=== PATIENT | male | born 1985 | race Hispanic/Latino ===

== ENCOUNTER 2024-03-23 17:23 | Emergency (ER) | payer OTHER ==
[2024-03-23 18:46] LABS: #Basophils 0.04 10x3/uL (0.0-0.2); %Basophils 0.5 % (0.0-1.0); %Eosinophils 0.9 % (0.0-10.0); %Lymphocytes 27.3 % (21.0-51.0); %Neutrophils 62.2 % (42.0-75.0); Hematocrit 31.7 % (42.0-52.0); Hemoglobin 9.9 g/dL (14.0-18.0); Mean Corpuscular HGB CONC 31.2 g/dL (32.0-36.0); Mean Corpuscular Hemoglobin 27.3 pg (27.0-31.0); Mean Corpuscular Volume 87.3 fL (78.0-98.0); Platelet Count 345 10x3/uL (130-400); RBC Distribution Width 14.6 % (11.5-14.5); Red Blood Cell (RBC) Count 3.63 mill/uL (4.70-6.10)
[2024-03-23 19:16] LABS: ALT (SGPT) 16 U/L (8-55); AST (SGOT) 24 U/L (5-34); Albumin 2.7 g/dL (3.5-5.0); Alkaline Phosphatase 66 U/L (40-110); Anion Gap 9 mmol/L (10-20); BUN (Urea Nitrogen) 13 mg/dL (8.9-20.6); Bilirubin, Total 0.3 mg/dL (0.2-1.2); Calc. Creatinine Clearance 0 mL/min (70-130); Calcium 8.8 mg/dL (7.8-10.44); Carbon Dioxide 22 mmol/L (22-29); Chloride 106 mmol/L (98-107); Estimated GFR 121; Globulin 4.8 g/dL (2.4-3.5); Glucose 84 mg/dL (70-105); Lipase 17 U/L (8-78); Potassium 4.1 mmol/L (3.5-5.1); Protein, Total 7.5 g/dL (6.0-8.3); Sodium 133 mmol/L (136-145)
[2024-03-23 19:29] LABS: Bacteria/HPF None Seen HPF (None Seen); Bilirubin Negative (Negative); Blood, Urine Negative (Negative); CAUTI Indications for Culture Pelvic or flank pain; Clarity Clear (Clear); Glucose, Urine (Dipstick) Normal (Negative); Ketone, Urine Negative (Negative); Leukocyte Negative Leu/uL (Negative); Nitrite Negative (Negative); Protein, Urine (Dipstick) Negative (Neg-Trace); RBC/HPF 0-3 HPF (0-3); Specific Gravity, Urine 1.009 (1.002-1.036); Squamous Epithelial 0-3 HPF (0-3); Urobilinogen Normal mg/dL (Less than 2); WBC/HPF 0-3 HPF (0-3); pH, Urine 6.5 (5.0-9.0)
[2024-03-23 19:33] LABS: Urine Culture Reflex No No
== END 2024-03-23 21:35 | disposition home or self-care (01) ==
LOC: ERS 17:23
DX: B34.9 Viral infection, unspecified (principal); R10.13 Epigastric pain; F17.210 Nicotine dependence, cigarettes, uncomplicated
CPT/HCPCS: 36415; 76705; 80053; 81001; 83690; 85025; 87428

== ENCOUNTER 2025-01-23 20:15 | Emergency (ER) | payer OTHER, SELFPAY ==
[~2025-01-23 20:15] MED LIST: Iopamidol 370 76% 100 ML VIAL ONE
[2025-01-23 20:54] LABS: #Basophils Less than 0.03 10x3/uL (0.0-0.2); #Eosinophils 0.05 10x3/uL (0.0-0.7); #Monocytes 0.50 10x3/uL (0.11-0.59); #Neutrophils 2.48 10x3/uL (1.40-6.50); %Basophils 0.4 % (0.0-1.0); %Eosinophils 1.0 % (0.0-10.0); %Lymphocytes 35.4 % (21.0-51.0); %Monocytes 10.4 % (0.0-10.0); %Neutrophils 51.8 % (42.0-75.0); Hematocrit 30.5 % (42.0-52.0); Hemoglobin 9.6 g/dL (14.0-18.0); Mean Corpuscular Hemoglobin 24.4 pg (27.0-31.0); Mean Corpuscular Volume 77.6 fL (78.0-98.0); Platelet Count 369 10x3/uL (130-400); Red Blood Cell (RBC) Count 3.93 mill/uL (4.70-6.10); White Blood Cell (WBC) Count 4.80 10x3/uL (4.8-10.8)
[2025-01-23 21:11] LABS: ALT (SGPT) 13 U/L (Less than 45); AST (SGOT) 20 U/L (11-34); Albumin 2.9 g/dL (3.1-4.5); Alkaline Phosphatase 60 U/L (40-110); Anion Gap 17 mmol/L (10-20); BUN (Urea Nitrogen) 11 mg/dL (8.9-20.6); Bilirubin, Total 0.2 mg/dL (0.3-1.2); Calc. Creatinine Clearance 0 mL/min (70-130); Calcium 8.4 mg/dL (7.8-10.44); Carbon Dioxide 21 mmol/L (22-29); Chloride 101 mmol/L (98-107); Globulin 4.8 g/dL (2.4-3.5); Glucose 180 mg/dL (70-105); Potassium 4.3 mmol/L (3.5-5.1); Sodium 135 mmol/L (136-145)
[2025-01-23 21:14] LABS: Troponin I Less than 0.010 ng/mL (< 0.028)
[2025-01-23 21:22] LABS: INR-International Normal Ratio 1.2; Prothrombin Time 15.0 sec (12.0-14.7)
[2025-01-23 21:23] LABS: PTT 32.4 sec (22.9-36.1)
== END 2025-01-24 00:55 | disposition home or self-care (01) ==
LOC: ERS 20:15
DX: K52.9 Noninfective gastroenteritis and colitis, unspecified (principal); D50.9 Iron deficiency anemia, unspecified; J18.9 Pneumonia, unspecified organism; F17.210 Nicotine dependence, cigarettes, uncomplicated
CPT/HCPCS: 74177; 80053; 83605; 84484; 85025; 85610; 85730; 87040; 87077; 87149; 93005; 96374; J2270; Q9967

== ENCOUNTER 2025-01-30 19:30 | Emergency (ER) | payer SELFPAY ==
[~2025-01-30 19:30] MED LIST changes: -Iopamidol 370 76% 100 ML VIAL ONE; +Iopamidol-370 76% 500 ML MDV (1 ML CHARGE) ONE
[2025-01-30] MEDS ORDERED: Acetaminophen 500 MG TAB ONE (19:48)
[2025-01-30 20:03] LABS: Bacteria/HPF None Seen HPF (None Seen); CAUTI Indications for Culture Fever or rigors; Glucose, Urine (Dipstick) Normal (Negative); Leukocyte Negative Leu/uL (Negative); Protein, Urine (Dipstick) Negative (Neg-Trace); RBC/HPF None Seen HPF (0-3); Specific Gravity, Urine 1.007 (1.002-1.036); WBC/HPF 0-3 HPF (0-3)
[2025-01-30 20:10] LABS: Urine Culture Reflex No No
[2025-01-30 20:13] LABS: #Basophils Less than 0.03 10x3/uL (0.0-0.2); #Eosinophils 0.09 10x3/uL (0.0-0.7); #Monocytes 0.39 10x3/uL (0.11-0.59); #Neutrophils 2.52 10x3/uL (1.40-6.50); %Basophils 0.4 % (0.0-1.0); %Eosinophils 2.0 % (0.0-10.0); %Lymphocytes 32.6 % (21.0-51.0); %Monocytes 8.5 % (0.0-10.0); %Neutrophils 55.2 % (42.0-75.0); Hematocrit 30.8 % (42.0-52.0); Hemoglobin 9.6 g/dL (14.0-18.0); Mean Corpuscular Hemoglobin 24.4 pg (27.0-31.0); Mean Corpuscular Volume 78.4 fL (78.0-98.0); Platelet Count 375 10x3/uL (130-400); Red Blood Cell (RBC) Count 3.93 mill/uL (4.70-6.10); White Blood Cell (WBC) Count 4.57 10x3/uL (4.8-10.8)
[2025-01-30 20:28] LABS: ALT (SGPT) 13 U/L (Less than 45); AST (SGOT) 32 U/L (11-34); Albumin 3.0 g/dL (3.1-4.5); Alkaline Phosphatase 60 U/L (40-110); Anion Gap 14 mmol/L (10-20); BUN (Urea Nitrogen) 9 mg/dL (8.9-20.6); Bilirubin, Total 0.2 mg/dL (0.3-1.2); Calc. Creatinine Clearance 0 mL/min (70-130); Calcium 8.6 mg/dL (7.8-10.44); Carbon Dioxide 23 mmol/L (22-29); Chloride 98 mmol/L (98-107); Globulin 4.9 g/dL (2.4-3.5); Glucose 102 mg/dL (70-105); Lipase 13 U/L (8-78); Potassium 4.6 mmol/L (3.5-5.1); Sodium 130 mmol/L (136-145)
[2025-01-30] MEDS ORDERED: Ketorolac Tromethamine 30 MG (1 mL) VIAL ONE (21:35)
[2025-01-30] MEDS ORDERED: Ondansetron PF 4 MG/2 ML Vial ONE (21:36)
[2025-01-31 00:10] LABS: HIV (1/2) Antibody/Antigen Reflxed Confirmation (NonReactive); HIV 1/2 INDEX 740.31 S/CO (<1.00)
[2025-01-31 11:39] LABS: Syphilis Antibody Index 25.73 S/CO (<1.00 Non-Reactive)
[2025-01-31 12:48] LABS: Syphilis Titer 1:128 Titer (Nonreactive)
[2025-02-01 15:13] LABS: %CD3 (Mature T-Cells) 52.1 % (57.5-86.2); %CD4 (Helper/Inducer) 3.0 % (30.8-58.5); %CD8 (Cytotoxic/Suppressor) 49.9 % (12.0-35.5); %Neutrophils 54 % (Not Estab.); CD4/CD8 Ratio 0.06 (0.92-3.72); Hemoglobin 8.8 g/dL (13.0-17.7); Mean Corpuscular Hemoglobin 24.2 pg (26.6-33.0); Mean Corpuscular Volume 81 fL (79-97); Platelet Count 331 x10E3/uL (150-450)
== END 2025-01-31 02:34 | disposition home or self-care (01) ==
LOC: ERS 19:30
DX: U07.1 COVID-19 (principal); R10.9 Unspecified abdominal pain; F17.210 Nicotine dependence, cigarettes, uncomplicated
CPT/HCPCS: 36415; 71045; 74177; 80053; 81001; 83605; 83690; 84484; 85025; 86359; 86360; 86593; 86780; 87040; 87389; 87426; 87535; 87538; 93005; 96374; 96375; 96376; J1885; J2405; J3010; Q9967

== ENCOUNTER 2025-02-01 15:07 | Emergency (ER) | payer OTHER, SELFPAY ==
[2025-02-01 19:07] LABS: #Basophils 0.03 10x3/uL (0.0-0.2); #Eosinophils 0.03 10x3/uL (0.0-0.7); #Monocytes 0.37 10x3/uL (0.11-0.59); #Neutrophils 2.62 10x3/uL (1.40-6.50); %Basophils 0.7 % (0.0-1.0); %Eosinophils 0.7 % (0.0-10.0); %Lymphocytes 31.2 % (21.0-51.0); %Monocytes 8.0 % (0.0-10.0); %Neutrophils 56.8 % (42.0-75.0); Hematocrit 30.7 % (42.0-52.0); Hemoglobin 9.7 g/dL (14.0-18.0); Mean Corpuscular Hemoglobin 24.1 pg (27.0-31.0); Mean Corpuscular Volume 76.2 fL (78.0-98.0); Platelet Count 360 10x3/uL (130-400); Red Blood Cell (RBC) Count 4.03 mill/uL (4.70-6.10); White Blood Cell (WBC) Count 4.61 10x3/uL (4.8-10.8)
[2025-02-01] MEDS ORDERED: Famotidine/PF 20 mg/2ml Vial ONE (19:09)
[2025-02-01] MEDS ORDERED: Ondansetron PF 4 MG/2 ML Vial ONE (19:09)
[2025-02-01] MEDS ORDERED: Ketorolac Tromethamine 30 MG (1 mL) VIAL ONE (19:09)
[2025-02-01 19:30] LABS: ALT (SGPT) 9 U/L (Less than 45); AST (SGOT) 27 U/L (11-34); Albumin 3.0 g/dL (3.1-4.5); Alkaline Phosphatase 51 U/L (40-110); Anion Gap 12 mmol/L (10-20); BUN (Urea Nitrogen) 11 mg/dL (8.9-20.6); Bilirubin, Total 0.2 mg/dL (0.3-1.2); Calc. Creatinine Clearance 0 mL/min (70-130); Calcium 8.8 mg/dL (7.8-10.44); Carbon Dioxide 23 mmol/L (22-29); Chloride 99 mmol/L (98-107); Globulin 5.1 g/dL (2.4-3.5); Glucose 152 mg/dL (70-105); Lipase 10 U/L (8-78); Potassium 4.4 mmol/L (3.5-5.1); Sodium 130 mmol/L (136-145)
[2025-02-01] MEDS ORDERED: Acetaminophen 500 MG TAB ONE (21:08)
== END 2025-02-01 21:40 | disposition home or self-care (01) ==
LOC: ERS 15:07
DX: U07.1 COVID-19 (principal); R10.10 Upper abdominal pain, unspecified; F17.210 Nicotine dependence, cigarettes, uncomplicated; Z55.6 Problems related to health literacy
CPT/HCPCS: 36415; 71045; 76705; 80053; 83690; 85025; 87426; 96374; 96375; J1308; J1885; J2405

== ENCOUNTER 2025-02-09 18:22 | Inpatient (IN) | payer OTHER ==
[2025-02-09 21:42] LABS: #Basophils Less than 0.03 10x3/uL (0.0-0.2); #Eosinophils Less than 0.03 10x3/uL (0.0-0.7); #Monocytes 0.77 10x3/uL (0.11-0.59); #Neutrophils 1.84 10x3/uL (1.40-6.50); %Basophils 0.5 % (0.0-1.0); %Eosinophils 0.2 % (0.0-10.0); %Lymphocytes 37.4 % (21.0-51.0); %Monocytes 17.5 % (0.0-10.0); %Neutrophils 41.9 % (42.0-75.0); Hematocrit 35.2 % (42.0-52.0); Hemoglobin 11.2 g/dL (14.0-18.0); Mean Corpuscular Hemoglobin 23.9 pg (27.0-31.0); Mean Corpuscular Volume 75.1 fL (78.0-98.0); Platelet Count 376 10x3/uL (130-400); Red Blood Cell (RBC) Count 4.69 mill/uL (4.70-6.10); White Blood Cell (WBC) Count 4.39 10x3/uL (4.8-10.8)
[2025-02-09] MEDS ORDERED: Pantoprazole 40 MG VIAL ONE (21:56)
[2025-02-09 22:16] LABS: ALT (SGPT) 12 U/L (Less than 45); AST (SGOT) 29 U/L (11-34); Albumin 3.1 g/dL (3.1-4.5); Alkaline Phosphatase 56 U/L (40-110); Anion Gap 15 mmol/L (10-20); BUN (Urea Nitrogen) 15 mg/dL (8.9-20.6); Bilirubin, Total 0.3 mg/dL (0.3-1.2); Calc. Creatinine Clearance 0 mL/min (70-130); Calcium 9.1 mg/dL (7.8-10.44); Carbon Dioxide 23 mmol/L (22-29); Chloride 98 mmol/L (98-107); Globulin 5.1 g/dL (2.4-3.5); Glucose 94 mg/dL (70-105); Lipase 8 U/L (8-78); Potassium 5.0 mmol/L (3.5-5.1); Sodium 131 mmol/L (136-145)
[2025-02-09] MEDS ORDERED: Cefepime 2 GM VIAL ONE (23:27)
[2025-02-10 00:18] LABS: Bacteria/HPF None Seen HPF (None Seen); CAUTI Indications for Culture Alt mental st,lethar; Glucose, Urine (Dipstick) Normal (Negative); Leukocyte Negative Leu/uL (Negative); Protein, Urine (Dipstick) 10 mg/dL (Neg-Trace); RBC/HPF 0-3 HPF (0-3); WBC/HPF 0-3 HPF (0-3)
[2025-02-10 00:21] LABS: Specific Gravity, Urine Greater than 1.050 (1.002-1.036)
[2025-02-10 00:22] LABS: Urine Culture Reflex No No
[2025-02-10 06:28] LABS: Anion Gap 11 mmol/L (10-20); BUN (Urea Nitrogen) 11 mg/dL (8.9-20.6); Calc. Creatinine Clearance 0 mL/min (70-130); Calcium 7.8 mg/dL (7.8-10.44); Carbon Dioxide 21 mmol/L (22-29); Chloride 105 mmol/L (98-107); Glucose 75 mg/dL (70-105); Potassium 4.2 mmol/L (3.5-5.1); Sodium 133 mmol/L (136-145)
[2025-02-10 06:37] LABS: Osmolality, Serum 273 mOsm/kg (275-295)
[2025-02-10] MEDS: Vancomycin 1.25 GM / NS 250 ML VIAL-2-BAG IVPB SCH (09:03)
[2025-02-10] MEDS ORDERED: Ondansetron PF 4 MG/2 ML Vial IVP PRN (09:18)
[2025-02-10] MEDS ORDERED: Bisacodyl 10 MG SUPP PR PRN (09:18)
[2025-02-10] MEDS ORDERED: Calcium Carbonate 500 MG ChewTAB PO PRN (09:18)
[2025-02-10] MEDS ORDERED: Albuterol 200 PUFF (6.7GM INHALER) INH PRN (09:21)
[2025-02-10] MEDS ORDERED: cefTRIAXone\\ROCEPHIN 1 GM in Sodium Chloride 0.9% 100 ML IVPB SCH (10:00)
[2025-02-10] MEDS: Acetaminophen 325 MG TAB PO PRN (10:02)
[2025-02-10 10:31] LABS: #Basophils Less than 0.03 10x3/uL (0.0-0.2); #Eosinophils Less than 0.03 10x3/uL (0.0-0.7); #Monocytes 0.76 10x3/uL (0.11-0.59); #Neutrophils 1.35 10x3/uL (1.40-6.50); %Basophils 0.3 % (0.0-1.0); %Eosinophils 0.5 % (0.0-10.0); %Lymphocytes 40.3 % (21.0-51.0); %Monocytes 19.9 % (0.0-10.0); %Neutrophils 35.3 % (42.0-75.0); Hematocrit 25.9 % (42.0-52.0); Hemoglobin 7.9 g/dL (14.0-18.0); Mean Corpuscular Hemoglobin 23.9 pg (27.0-31.0); Mean Corpuscular Volume 78.5 fL (78.0-98.0); Platelet Count 257 10x3/uL (130-400); Red Blood Cell (RBC) Count 3.30 mill/uL (4.70-6.10); White Blood Cell (WBC) Count 3.82 10x3/uL (4.8-10.8)
[2025-02-10 11:04] LABS: Iron 15 ug/dL (65-175); Iron Binding Capacity, Total 160 mcg/dL (261-462)
[2025-02-10 11:22] LABS: Influenza A by NAA Not Detected (NotDetected); Influenza B by NAA Not Detected (NotDetected); RSV by NAA Not Detected (NotDetected); SARS-CoV-2 NAA Rapid Test DETECTED (NotDetected)
[2025-02-10 11:26] LABS: Ferritin 640.36 ng/mL (22-322); Thyroid Stimulating Hormone 3.3532 uIU/mL (0.35-4.94); Vitamin B12 609.0 pg/mL (211-911)
[2025-02-10 12:00] LABS: Osmolality, Urine 757 mOsm/kg (50-1200)
[2025-02-10 12:31] LABS: Legionella Urinary Ag Negative (Negative); Strep pneumo Urine Ag NEGATIVE (NEGATIVE)
[2025-02-10] MEDS: Enoxaparin 40 MG (0.4 mL) SYRINGE SC SCH (13:08)
[2025-02-10] MEDS: Ketorolac Tromethamine 30 MG (1 mL) VIAL IVP PRN (13:09)
[2025-02-10 14:29] LABS: Hematocrit 24.4 % (42.0-52.0); Hemoglobin 7.6 g/dL (14.0-18.0)
[2025-02-10] MEDS ORDERED: Azithromycin 500 MG in Sodium Chloride 0.9% 250 ML 250 ML IVPB SCH (16:15)
[2025-02-10] MEDS: Fluconazole In NaCl,Iso-Osm 200 MG in Premix 1 BAG IVPB SCH (17:47)
[2025-02-10] MEDS: Bicillin LA 2.4 MILL.UNITS/4 ML SYRINGE IM SCH (17:47)
[2025-02-10 18:30] VITALS: BMI 17.5
[2025-02-10] MEDS: Melatonin 3 MG TAB PO PRN (20:22)
[2025-02-11] MEDS: Guaifenesin DM 100-10/5 ML UDCUP PO PRN (08:07)
[2025-02-11] MEDS: Senokot S 8.6-50 MG TAB PO PRN (08:07)
[2025-02-11] MEDS: Enoxaparin 40 MG (0.4 mL) SYRINGE SC SCH (08:11)
[2025-02-11 11:08] LABS: #Basophils Less than 0.03 10x3/uL (0.0-0.2); #Eosinophils 0.05 10x3/uL (0.0-0.7); #Monocytes 0.44 10x3/uL (0.11-0.59); #Neutrophils 1.46 10x3/uL (1.40-6.50); %Basophils 0.3 % (0.0-1.0); %Eosinophils 1.7 % (0.0-10.0); %Lymphocytes 31.0 % (21.0-51.0); %Monocytes 14.8 % (0.0-10.0); %Neutrophils 49.2 % (42.0-75.0); Hematocrit 25.3 % (42.0-52.0); Hemoglobin 7.7 g/dL (14.0-18.0); Mean Corpuscular Hemoglobin 23.6 pg (27.0-31.0); Mean Corpuscular Volume 77.6 fL (78.0-98.0); Platelet Count 280 10x3/uL (130-400); Red Blood Cell (RBC) Count 3.26 mill/uL (4.70-6.10); White Blood Cell (WBC) Count 2.97 10x3/uL (4.8-10.8)
[2025-02-11 11:09] LABS: Anion Gap 10 mmol/L (10-20); BUN (Urea Nitrogen) 7 mg/dL (8.9-20.6); Calc. Creatinine Clearance 129 mL/min (70-130); Calcium 7.9 mg/dL (7.8-10.44); Carbon Dioxide 22 mmol/L (22-29); Chloride 105 mmol/L (98-107); Glucose 75 mg/dL (70-105); Potassium 3.8 mmol/L (3.5-5.1); Sodium 133 mmol/L (136-145)
[2025-02-11] MEDS: Sodium Ferric Gluconate 250 MG in Sodium Chloride 0.9% 250 ML 250 ML IVPB SCH (11:48)
[2025-02-11 16:35] LABS: Reference Lab Name LABCORP
[2025-02-11 16:43] LABS: Hematocrit 27.3 % (42.0-52.0); Hemoglobin 8.5 g/dL (14.0-18.0)
[2025-02-11] MEDS: Nystatin 500,000 UNITS/5 ML UDCUP SSW SCH (17:17)
[2025-02-11] MEDS: Emtricitabine/Tenofovir 200-300 MG TAB PO SCH (19:55)
[2025-02-12 05:51] LABS: Hematocrit 26.1 % (42.0-52.0); Hemoglobin 8.2 g/dL (14.0-18.0); Mean Corpuscular Hemoglobin 24.0 pg (27.0-31.0); Mean Corpuscular Volume 76.5 fL (78.0-98.0); Platelet Count 289 10x3/uL (130-400); Red Blood Cell (RBC) Count 3.41 mill/uL (4.70-6.10); White Blood Cell (WBC) Count 3.02 10x3/uL (4.8-10.8)
[2025-02-12 06:13] LABS: Anisocytosis SLIGHT = 6-15 cells HPF (0-5); Microcytosis SLIGHT = 6-15 cells HPF (0-5); Platelet Adequacy Comment Platelets Normal; Polychromasia SLIGHT = 2-3 cells HPF (0-2)
[2025-02-12 06:15] LABS: ALT (SGPT) Less than 7 U/L (Less than 45); AST (SGOT) 18 U/L (11-34); Albumin 2.2 g/dL (3.1-4.5); Alkaline Phosphatase 42 U/L (40-110); Anion Gap 7 mmol/L (10-20); BUN (Urea Nitrogen) 6 mg/dL (8.9-20.6); Bilirubin, Total 0.2 mg/dL (0.3-1.2); Calc. Creatinine Clearance 116 mL/min (70-130); Calcium 7.9 mg/dL (7.8-10.44); Carbon Dioxide 23 mmol/L (22-29); Chloride 106 mmol/L (98-107); Globulin 3.9 g/dL (2.4-3.5); Glucose 73 mg/dL (70-105); Potassium 3.6 mmol/L (3.5-5.1); Sodium 132 mmol/L (136-145)
[2025-02-12 06:40] LABS: Chlam.trachomatis by PCR,Urine *Indeterminate (NotDetected); GC N.gonorrhoeae PCR,UrineVOID *Indeterminate (NotDetected)
[2025-02-12] MEDS: Enoxaparin 30 MG (0.3 mL) SYRINGE SC SCH (09:32)
[2025-02-12] MEDS ORDERED: Glycerin Adult Supp. (12 ct jar) PR PRN (17:45)
[2025-02-12 23:09] LABS: HIV-1 Quantitative, RNA PCR 399000.0 copies/mL (.); LOG10 HIV-1 RNA 5.601 (.)
[2025-02-14] MEDS: Ferrous Gluconate 324 MG TAB PO SCH (12:28)
[2025-02-15 13:10] VITALS: BMI 17.5
[2025-02-17] MEDS: Bicillin LA 2.4 MILL.UNITS/4 ML SYRINGE IM SCH (09:12)
[2025-02-18 12:11] VITALS: BP 114/75; TEMP 98.7
[2025-02-18] MEDS: Fluconazole 100 MG TAB PO SCH (14:11)
== END 2025-02-18 16:40 | disposition home or self-care (01) | DRG 975 ==
LOC: ERS 18:22 → T4-A 02-10 05:45
PROVIDERS: ADMIT Internal Medicine; ATTEND Hospitalist
DX: J18.9 Pneumonia, unspecified organism (principal); A54.9 Gonococcal infection, unspecified; B20 Human immunodeficiency virus [HIV] disease; E44.0 Moderate protein-calorie malnutrition; Z68.1 Body mass index [BMI] 19.9 or less, adult; D63.8 Anemia in other chronic diseases classified elsewhere; A74.9 Chlamydial infection, unspecified; B37.81 Candidal esophagitis; Z79.60 Long term (current) use of unspecified immunomodulators and immunosuppressants; F17.210 Nicotine dependence, cigarettes, uncomplicated
CPT/HCPCS: 36415; 71045; 71275; 74177; 80048; 80053; 81001; 82607; 82728; 83540; 83550; 83605; 83615; 83690; 83930; 83935; 84145; 84443; 84484; 85025; 86480; 86611; 87040; 87070; 87081; 87116; 87205; 87206; 87449; 87491; 87536; 87591; 87633; 87637; 87899; 93005; 94640; 96374; 96375; J0561; J0692; J1450; J1650; J1885; J2270; J2470; J2916; J3373; J7050; Q9967

== ENCOUNTER 2025-03-05 19:15 | Inpatient (IN) | payer OTHER ==
[2025-03-05] MEDS ORDERED: Acetaminophen 500 MG TAB ONE (20:03)
[2025-03-05] MEDS ORDERED: Ketorolac Tromethamine 30 MG (1 mL) VIAL ONE (20:03)
[2025-03-05] MEDS ORDERED: Lidocaine 1% PF 5 ML VIAL ONE (20:03)
[2025-03-05] MEDS ORDERED: cefTRIAXone (ROCEPHIN) 2 GM VIAL ONE (20:03)
[2025-03-05] MEDS ORDERED: Azithromycin 500 MG VIAL ONE (20:04)
[2025-03-05 20:15] LABS: Hematocrit 26.3 % (42.0-52.0); Hemoglobin 8.6 g/dL (14.0-18.0); Mean Corpuscular Hemoglobin 25.4 pg (27.0-31.0); Mean Corpuscular Volume 77.6 fL (78.0-98.0); Platelet Count 274 10x3/uL (130-400); Red Blood Cell (RBC) Count 3.39 mill/uL (4.70-6.10); White Blood Cell (WBC) Count 3.74 10x3/uL (4.8-10.8)
[2025-03-05 20:39] LABS: Anisocytosis SLIGHT = 6-15 cells HPF (0-5); Microcytosis SLIGHT = 6-15 cells HPF (0-5); Platelet Adequacy Comment Platelets Normal; Schistocytes SLIGHT = 2-5 cells HPF (0-1); Smudge Cells 49.5 %
[2025-03-05 20:57] LABS: ALT (SGPT) 10 U/L (Less than 45); AST (SGOT) 31 U/L (11-34); Albumin 2.7 g/dL (3.1-4.5); Alkaline Phosphatase 64 U/L (40-110); Anion Gap 12 mmol/L (10-20); BUN (Urea Nitrogen) 26 mg/dL (8.9-20.6); Bilirubin, Total 0.2 mg/dL (0.3-1.2); Calc. Creatinine Clearance 0 mL/min (70-130); Calcium 8.7 mg/dL (7.8-10.44); Carbon Dioxide 21 mmol/L (22-29); Chloride 99 mmol/L (98-107); Globulin 6.8 g/dL (2.4-3.5); Glucose 83 mg/dL (70-105); Potassium 4.3 mmol/L (3.5-5.1); Sodium 128 mmol/L (136-145)
[2025-03-05 21:02] LABS: Bacteria/HPF None Seen HPF (None Seen); CAUTI Indications for Culture Fever or rigors; Glucose, Urine (Dipstick) Normal (Negative); Leukocyte Negative Leu/uL (Negative); Protein, Urine (Dipstick) 70 mg/dL (Neg-Trace); RBC/HPF None Seen HPF (0-3); Specific Gravity, Urine 1.019 (1.002-1.036); WBC/HPF None Seen HPF (0-3)
[2025-03-05 21:03] LABS: Urine Culture Reflex No No
[2025-03-06] MEDS ORDERED: Electrolyte Replacement Protocol 1 EACH FS PRN (03:15)
[2025-03-06] MEDS ORDERED: Calcium Carbonate 500 MG ChewTAB PO PRN (03:15)
[2025-03-06 03:55] LABS: #Basophils 0.03 10x3/uL (0.0-0.2); #Eosinophils Less than 0.03 10x3/uL (0.0-0.7); #Monocytes 0.40 10x3/uL (0.11-0.59); #Neutrophils 1.46 10x3/uL (1.40-6.50); %Basophils 0.7 % (0.0-1.0); %Eosinophils 0.0 % (0.0-10.0); %Lymphocytes 52.0 % (21.0-51.0); %Monocytes 9.5 % (0.0-10.0); %Neutrophils 34.5 % (42.0-75.0); Hematocrit 24.3 % (42.0-52.0); Hemoglobin 7.5 g/dL (14.0-18.0); Mean Corpuscular Hemoglobin 24.9 pg (27.0-31.0); Mean Corpuscular Volume 80.7 fL (78.0-98.0); Platelet Count 228 10x3/uL (130-400); Red Blood Cell (RBC) Count 3.01 mill/uL (4.70-6.10); White Blood Cell (WBC) Count 4.23 10x3/uL (4.8-10.8)
[2025-03-06 04:08] LABS: ALT (SGPT) 9 U/L (Less than 45); AST (SGOT) 23 U/L (11-34); Albumin 1.9 g/dL (3.1-4.5); Alkaline Phosphatase 56 U/L (40-110); Anion Gap 12 mmol/L (10-20); BUN (Urea Nitrogen) 21 mg/dL (8.9-20.6); Bilirubin, Total 0.1 mg/dL (0.3-1.2); Calc. Creatinine Clearance 0 mL/min (70-130); Calcium 7.9 mg/dL (7.8-10.44); Carbon Dioxide 16 mmol/L (22-29); Chloride 109 mmol/L (98-107); Globulin 5.3 g/dL (2.4-3.5); Glucose 68 mg/dL (70-105); Potassium 4.3 mmol/L (3.5-5.1); Sodium 133 mmol/L (136-145)
[2025-03-06 05:16] VITALS: BMI 18.3
[2025-03-06] MEDS: Vancomycin 1.25 GM / NS 250 ML VIAL-2-BAG IVPB SCH (05:30)
[2025-03-06] MEDS ORDERED: Vancomycin (BATCH) 1.5 GM/300 ML BAG IVPB SCH (09:00)
[2025-03-06] MEDS: Sulfameth/Trimethoprim DS 800-160mg TAB PO SCH (09:03)
[2025-03-06] MEDS: Nystatin 500,000 UNITS/5 ML UDCUP SSW SCH (09:04)
[2025-03-06] MEDS: Azithromycin 250 MG TAB PO SCH (09:04)
[2025-03-06] MEDS: Acetaminophen 325 MG TAB PO PRN (09:24)
[2025-03-06] MEDS: Ferrous Gluconate 324 MG TAB PO SCH (12:29)
[2025-03-06] MEDS: Vancomycin 1 GM in Premix 1 BAG IVPB SCH (17:20)
[2025-03-06] MEDS: Emtricitabine/Tenofovir 200-300 MG TAB PO SCH (18:01)
[2025-03-06 18:25] LABS: Hematocrit 26.7 % (42.0-52.0); Hemoglobin 8.1 g/dL (14.0-18.0)
[2025-03-06] MEDS: Acetaminophen 500 MG TAB PO SCH (19:27)
[2025-03-06] MEDS: Ketorolac Tromethamine 30 MG (1 mL) VIAL IVP SCH (22:53)
[2025-03-07 04:34] LABS: Vancomycin, Random 12.0 ug/mL (See Comment)
[2025-03-07 04:42] LABS: ALT (SGPT) 8 U/L (Less than 45); AST (SGOT) 25 U/L (11-34); Albumin 1.9 g/dL (3.1-4.5); Alkaline Phosphatase 51 U/L (40-110); Anion Gap 11 mmol/L (10-20); BUN (Urea Nitrogen) 12 mg/dL (8.9-20.6); Bilirubin, Total 0.1 mg/dL (0.3-1.2); Calc. Creatinine Clearance 89 mL/min (70-130); Calcium 8.0 mg/dL (7.8-10.44); Carbon Dioxide 18 mmol/L (22-29); Chloride 103 mmol/L (98-107); Globulin 5.4 g/dL (2.4-3.5); Glucose 69 mg/dL (70-105); Iron 19 ug/dL (65-175); Potassium 4.4 mmol/L (3.5-5.1); Sodium 128 mmol/L (136-145)
[2025-03-07 04:47] LABS: Hematocrit 26.1 % (42.0-52.0); Hemoglobin 8.2 g/dL (14.0-18.0); Mean Corpuscular Hemoglobin 25.2 pg (27.0-31.0); Mean Corpuscular Volume 80.1 fL (78.0-98.0); Platelet Count 246 10x3/uL (130-400); Red Blood Cell (RBC) Count 3.26 mill/uL (4.70-6.10); White Blood Cell (WBC) Count 3.46 10x3/uL (4.8-10.8)
[2025-03-07 05:39] LABS: Platelet Adequacy Comment Platelets Normal; Schistocytes SLIGHT = 2-5 cells HPF (0-1); Smudge Cells 64.5 %; Target Cells SLIGHT = 2-5 cells HPF (0-1)
[2025-03-07 10:36] LABS: %CD19 (Earliest B-Cells) 7.2 % (3.3-25.4); %CD3 (Mature T-Cells) 70.4 % (57.5-86.2); %CD4 (Helper/Inducer) 4.2 % (30.8-58.5); %CD8 (Cytotoxic/Suppressor) 67.5 % (12.0-35.5); CD4/CD8 Ratio 0.06 (0.92-3.72); Lymphocytes/Gated Cell Count 1.8 x10E3/uL (0.7-3.1); Lymphocytes/Gated Cells % 37 % (Not Estab.)
[2025-03-08 04:51] LABS: Anion Gap 11 mmol/L (10-20); BUN (Urea Nitrogen) 9 mg/dL (8.9-20.6); Calc. Creatinine Clearance 105 mL/min (70-130); Calcium 8.0 mg/dL (7.8-10.44); Carbon Dioxide 20 mmol/L (22-29); Chloride 98 mmol/L (98-107); Glucose 75 mg/dL (70-105); Potassium 4.1 mmol/L (3.5-5.1); Sodium 125 mmol/L (136-145)
[2025-03-08 04:59] LABS: Hematocrit 26.3 % (42.0-52.0); Hemoglobin 8.1 g/dL (14.0-18.0); Mean Corpuscular Hemoglobin 24.8 pg (27.0-31.0); Mean Corpuscular Volume 80.7 fL (78.0-98.0); Platelet Count 262 10x3/uL (130-400); Red Blood Cell (RBC) Count 3.26 mill/uL (4.70-6.10); White Blood Cell (WBC) Count 3.19 10x3/uL (4.8-10.8)
[2025-03-08 07:39] LABS: Anisocytosis SLIGHT = 6-15 cells HPF (0-5); Platelet Adequacy Comment Platelets Normal; Schistocytes SLIGHT = 2-5 cells HPF (0-1); Smudge Cells 77.8 %
[2025-03-08] MEDS ORDERED: Iopamidol 370 76% 100 ML VIAL ONE (10:23)
[2025-03-08 10:38] LABS: HIV-1 Quantitative, RNA PCR 3550000.0 copies/mL (.); LOG10 HIV-1 RNA 6.55 (.)
[2025-03-08] MEDS: Ondansetron PF 4 MG/2 ML Vial IVP PRN (10:39)
[2025-03-08] MEDS: Pantoprazole 40 MG DR.TAB PO SCH (15:57)
[2025-03-09 03:35] LABS: Hematocrit 24.8 % (42.0-52.0); Hemoglobin 7.6 g/dL (14.0-18.0); Mean Corpuscular Hemoglobin 24.5 pg (27.0-31.0); Mean Corpuscular Volume 80.0 fL (78.0-98.0); Platelet Count 240 10x3/uL (130-400); Red Blood Cell (RBC) Count 3.10 mill/uL (4.70-6.10); White Blood Cell (WBC) Count 3.04 10x3/uL (4.8-10.8)
[2025-03-09 03:59] LABS: Anion Gap 10 mmol/L (10-20); BUN (Urea Nitrogen) 12 mg/dL (8.9-20.6); Calc. Creatinine Clearance 95 mL/min (70-130); Calcium 7.9 mg/dL (7.8-10.44); Carbon Dioxide 21 mmol/L (22-29); Chloride 99 mmol/L (98-107); Glucose 72 mg/dL (70-105); Potassium 4.6 mmol/L (3.5-5.1); Sodium 125 mmol/L (136-145)
[2025-03-09 04:03] LABS: Vancomycin, Random 16.5 ug/mL (See Comment)
[2025-03-09 04:05] LABS: Anisocytosis SLIGHT = 6-15 cells HPF (0-5); Microcytosis SLIGHT = 6-15 cells HPF (0-5); Platelet Adequacy Comment Platelets Normal; Polychromasia SLIGHT = 2-3 cells HPF (0-2); Smudge Cells 105.0 %
[2025-03-09] MEDS: PNEUMOC 20-VAL CONJ-DIP CRM/PF 0.5 ML SYRINGE IM ONE (08:32)
[2025-03-09] MEDS: Pantoprazole 40 MG DR.TAB PO SCH ×2 (08:45→20:21)
[2025-03-10 03:36] LABS: Hematocrit 26.0 % (42.0-52.0); Hemoglobin 8.0 g/dL (14.0-18.0)
[2025-03-10 03:53] LABS: Anion Gap 11 mmol/L (10-20); BUN (Urea Nitrogen) 10 mg/dL (8.9-20.6); Calc. Creatinine Clearance 114 mL/min (70-130); Calcium 8.3 mg/dL (7.8-10.44); Carbon Dioxide 20 mmol/L (22-29); Chloride 98 mmol/L (98-107); Glucose 87 mg/dL (70-105); Potassium 4.6 mmol/L (3.5-5.1); Sodium 124 mmol/L (136-145)
[2025-03-10] MEDS: Albumin 25% 25 GM (100 mL) BOT IVPB SCH ×2 (10:06→12:46)
[2025-03-11 04:09] LABS: Anion Gap 11 mmol/L (10-20); BUN (Urea Nitrogen) 11 mg/dL (8.9-20.6); Calc. Creatinine Clearance 114 mL/min (70-130); Calcium 8.8 mg/dL (7.8-10.44); Carbon Dioxide 21 mmol/L (22-29); Chloride 105 mmol/L (98-107); Glucose 82 mg/dL (70-105); Potassium 4.1 mmol/L (3.5-5.1); Sodium 133 mmol/L (136-145)
[2025-03-11] MEDS: Enoxaparin 30 MG (0.3 mL) SYRINGE SC SCH (21:23)
[2025-03-12 11:35] LABS: Vancomycin, Random 20.0 ug/mL (See Comment)
[2025-03-12 11:37] LABS: Anion Gap 10 mmol/L (10-20); BUN (Urea Nitrogen) 9 mg/dL (8.9-20.6); Calc. Creatinine Clearance 123 mL/min (70-130); Calcium 8.8 mg/dL (7.8-10.44); Carbon Dioxide 23 mmol/L (22-29); Chloride 108 mmol/L (98-107); Glucose 79 mg/dL (70-105); Potassium 4.5 mmol/L (3.5-5.1); Sodium 136 mmol/L (136-145)
[2025-03-12 11:38] LABS: Hematocrit 27.1 % (42.0-52.0); Hemoglobin 8.1 g/dL (14.0-18.0); Mean Corpuscular Hemoglobin 25.0 pg (27.0-31.0); Mean Corpuscular Volume 83.6 fL (78.0-98.0); Platelet Count 322 10x3/uL (130-400); Red Blood Cell (RBC) Count 3.24 mill/uL (4.70-6.10); White Blood Cell (WBC) Count 3.31 10x3/uL (4.8-10.8)
[2025-03-12 12:01] LABS: Anisocytosis SLIGHT = 6-15 cells HPF (0-5); Platelet Adequacy Comment Platelets Normal; Polychromasia SLIGHT = 2-3 cells HPF (0-2); Schistocytes SLIGHT = 2-5 cells HPF (0-1); Smudge Cells 35.6 %
[2025-03-12] MEDS: Benzonatate 100 MG CAP PO SCH (20:56)
[2025-03-12] MEDS: Ketorolac Tromethamine 30 MG (1 mL) VIAL IVP SCH (20:57)
[2025-03-12 23:23] VITALS: BMI 18.3
[2025-03-13] MEDS: Ketorolac Tromethamine 30 MG (1 mL) VIAL IVP SCH (03:37)
[2025-03-13] MEDS: Vancomycin HCl 1.25 GM in Sodium Chloride 0.9% 250 ML 250 ML IVPB SCH (17:46)
[2025-03-14 09:19] LABS: Campy jejuni + coli by PCR POSITIVE (Negative); STEC Shiga Toxin 1+2 Negative (Negative); Salmonella spp. by PCR Negative (Negative); Shigella spp + EIEC by PCR Negative (Negative)
[2025-03-14 10:05] LABS: Vancomycin, Random 4.1 ug/mL (See Comment)
[2025-03-14 13:08] LABS: Hematocrit 25.4 % (42.0-52.0); Hemoglobin 7.6 g/dL (14.0-18.0); Mean Corpuscular Hemoglobin 24.9 pg (27.0-31.0); Mean Corpuscular Volume 83.3 fL (78.0-98.0); Platelet Count 456 10x3/uL (130-400); Red Blood Cell (RBC) Count 3.05 mill/uL (4.70-6.10); White Blood Cell (WBC) Count 4.78 10x3/uL (4.8-10.8)
[2025-03-14 13:17] LABS: Anion Gap 8 mmol/L (10-20); BUN (Urea Nitrogen) 10 mg/dL (8.9-20.6); Calc. Creatinine Clearance 138 mL/min (70-130); Calcium 9.0 mg/dL (7.8-10.44); Carbon Dioxide 25 mmol/L (22-29); Chloride 106 mmol/L (98-107); Glucose 83 mg/dL (70-105); Potassium 3.8 mmol/L (3.5-5.1); Sodium 135 mmol/L (136-145)
[2025-03-14 13:37] LABS: Anisocytosis SLIGHT = 6-15 cells HPF (0-5); Platelet Adequacy Comment Platelets Normal; Polychromasia SLIGHT = 2-3 cells HPF (0-2); Smudge Cells 59.0 %
[2025-03-15 04:12] LABS: Vancomycin, Random Less than 1.4 ug/mL (See Comment)
[2025-03-15 16:29] VITALS: BP 106/69; TEMP 98.2
== END 2025-03-15 17:10 | disposition home or self-care (01) | DRG 974 ==
LOC: ERS 19:15 → ERHOLD 23:58 → UNDOADMIN 03-06 00:04 → PCU 03-06 04:46 → ERHOLD 03-06 04:55 → PCU 03-10 17:51
PROVIDERS: ADMIT Student in an Organized Health Care Education/Training Program; ATTEND Hospitalist
PROC: 3E03329 Introduction of Other Anti-infective into Peripheral Vein, Percutaneous Approach (ICD-10-PCS; 2025-03-06)
PROC: 30233J1 Transfusion of Nonautologous Serum Albumin into Peripheral Vein, Percutaneous Approach (ICD-10-PCS; principal; 2025-03-10)
DX: A41.9 Sepsis, unspecified organism (principal); R65.21 Severe sepsis with septic shock; B20 Human immunodeficiency virus [HIV] disease; E44.0 Moderate protein-calorie malnutrition; E87.1 Hypo-osmolality and hyponatremia; N39.0 Urinary tract infection, site not specified; N17.9 Acute kidney failure, unspecified; Z68.1 Body mass index [BMI] 19.9 or less, adult; J15.9 Unspecified bacterial pneumonia; Z87.891 Personal history of nicotine dependence; D64.9 Anemia, unspecified; A53.9 Syphilis, unspecified; D50.9 Iron deficiency anemia, unspecified; C46.9 Kaposi's sarcoma, unspecified; Z79.899 Other long term (current) drug therapy
CPT/HCPCS: 10060; 36415; 71045; 74177; 80048; 80053; 80202; 81001; 82728; 83540; 83605; 85014; 85018; 85025; 85046; 86355; 86359; 86360; 86480; 87040; 87086; 87400; 87426; 87505; 87536; 93005; 94760; 96372; 96374; 96375; J0456; J0692; J0696; J1650; J1885; J3373; J7050; P9047; Q0162; Q9967

== ENCOUNTER 2025-04-22 11:50 | Emergency (ER) | payer OTHER ==
[2025-04-22 13:53] LABS: #Basophils Less than 0.03 10x3/uL (0.0-0.2); #Eosinophils 0.31 10x3/uL (0.0-0.7); #Monocytes 0.65 10x3/uL (0.11-0.59); #Neutrophils 3.54 10x3/uL (1.40-6.50); %Basophils 0.2 % (0.0-1.0); %Eosinophils 5.1 % (0.0-10.0); %Lymphocytes 23.8 % (21.0-51.0); %Monocytes 10.7 % (0.0-10.0); %Neutrophils 58.1 % (42.0-75.0); Hematocrit 29.7 % (42.0-52.0); Hemoglobin 9.5 g/dL (14.0-18.0); Mean Corpuscular Hemoglobin 28.7 pg (27.0-31.0); Mean Corpuscular Volume 89.7 fL (78.0-98.0); Platelet Count 384 10x3/uL (130-400); Red Blood Cell (RBC) Count 3.31 mill/uL (4.70-6.10); White Blood Cell (WBC) Count 6.09 10x3/uL (4.8-10.8)
[2025-04-22 14:12] LABS: CRP, High Sensitivity at Bryan 2.37 mg/dL (< or = 0.5)
[2025-04-22 15:12] LABS: ALT (SGPT) 10 U/L (Less than 45); AST (SGOT) 16 U/L (11-34); Albumin 2.8 g/dL (3.1-4.5); Alkaline Phosphatase 67 U/L (40-110); Anion Gap 13 mmol/L (10-20); BUN (Urea Nitrogen) 11 mg/dL (8.9-20.6); Bilirubin, Total 0.1 mg/dL (0.3-1.2); Calc. Creatinine Clearance 0 mL/min (70-130); Calcium 8.7 mg/dL (7.8-10.44); Carbon Dioxide 22 mmol/L (22-29); Chloride 110 mmol/L (98-107); Globulin 5.1 g/dL (2.4-3.5); Glucose 95 mg/dL (70-105); Potassium 4.2 mmol/L (3.5-5.1); Sodium 141 mmol/L (136-145)
[2025-04-22] MEDS ORDERED: Lidocaine 1% w/Epinephrine 1:100K 20 ML VIAL ONE (15:24)
== END 2025-04-22 16:45 | disposition home or self-care (01) ==
LOC: ERS 11:50
DX: L02.412 Cutaneous abscess of left axilla (principal); F17.210 Nicotine dependence, cigarettes, uncomplicated
CPT/HCPCS: 10060; 71046; 83605; 85025; 86141; 87070; 87077; 87205

== ENCOUNTER 2025-05-31 16:41 | Emergency (ER) | payer OTHER ==
[2025-05-31] MEDS ORDERED: Lidocaine 1% w/Epinephrine 1:100K 20 ML VIAL ONE (18:11)
== END 2025-05-31 19:44 | disposition home or self-care (01) ==
LOC: ERS 16:41
DX: L02.411 Cutaneous abscess of right axilla (principal); B20 Human immunodeficiency virus [HIV] disease; F17.210 Nicotine dependence, cigarettes, uncomplicated; Z79.899 Other long term (current) drug therapy; Z55.9 Problems related to education and literacy, unspecified
CPT/HCPCS: 10060